=== PATIENT | male | born 1990 | race African-American/Black ===

== ENCOUNTER 2016-05-06 23:30 | Emergency (ER) | payer BC ==
[~2016-05-06] VITALS: Ht 195.6 cm; Wt 83.0 kg
[2016-05-06 23:32] VITALS: BP 133/79; PULSE 70; RESP 20; TEMP 101.9; O2SAT 97
[2016-05-06] MEDS ORDERED: IBUPROFEN 800 MG TAB PO ONE (23:45)
--- NOTE | 2016-05-06 23:47 | PD ---
HPI Chief Complaint: Cold / Flu Symptoms Time Seen by Provider: 23:44 Travel History International Travel<30 days: No Contact w/Intl Traveler<30days: No Traveled to known affect area: No History of Present Illness HPI 25-year-old black male presents with a one-day history of fever, chills, headache, sore throat, cough, congestion, nausea, myalgias, arthralgias and general malaise. He is here going to school at [employer]. He denies any vomiting. No abdominal pain or urinary symptoms. No diarrhea. No vomiting. He has taken NyQuil but no antipyretics. [facility] Past Medical History Narrative Medical Finger dislocation Tetanus Vaccination: < 5 Years Past Surgical History Surgical History: No Previous Surgery Social History Alcohol Use: No Tobacco Use: No Substance Use: No Allergies-Medications (Allergen,Severity, Reaction): Coded Allergies: No Known Allergies (Unverified , 05/06/16) Review of Systems Except as stated in HPI: all other systems reviewed are Neg Physical Exam Narrative GENERAL: Well-developed, well-nourished in no acute distress. Nontoxic appearing. HEAD: Normocephalic, atraumatic. EYES: Pupils equal round and reactive. Extraocular motions intact. No scleral icterus. No injection or drainage. ENT: TMs clear without erythema. The external auditory canals clear. Nose: clear . Posterior pharynx is mildly erythematous and moist. No tonsillar edema or exudate. Uvula midline. Airway patent. NECK: Trachea midline.Supple, nontender, moves head freely. No central bony tenderness or spasm. CARDIOVASCULAR: Regular tachycardic rate and rhythm without murmurs, gallops, or rubs. RESPIRATORY: Clear to auscultation. Breath sounds equal bilaterally. No wheezes , rales, or rhonchi. GASTROINTESTINAL: Abdomen soft, non-tender, nondistended. No hepato-splenomegaly , or palpable masses. No guarding. EXTREMITIES: No clubbing, cyanosis, or edema. No joint tenderness, effusion, or edema noted. BACK: Nontender without deformity or crepitance. No flank tenderness. Data Data Last Documented VS Vital Signs Date Time Temp Pulse Resp B/P Pulse Ox O2 Delivery O2 Flow Rate FiO2 05/06/16 23:32 101.9 70 20 133/79 97 Room Air Orders Ibuprofen (Motrin) (05/06/16 23:45) MDM Medical Decision Making Medical Screen Exam Complete: Yes Emergency Medical Condition: Yes Medical Record Reviewed: Yes Differential Diagnosis MDM: High Differential diagnoses: Pneumonia, bronchitis, URI, influenza, influenza-like illness, strep throat Narrative Course The patient's symptoms are consistent with an influenza-like illness. Patient' s given 800 mg of ibuprofen by mouth and discharged in stable condition. Diagnosis Primary Impression: Influenza-like illness Patient Instructions: General Instructions Departure Forms: School Release, Please excuse from school until (free text option): No school or PE 5 days. Tests/Procedures Additional Instructions: Rest. Increase fluids. Tylenol and Advil. Robitussin-DM. No school or PE 5 days. Followup with your Dr. in one week. Return to the ER for any problems. Disposition: 01 DISCHARGE HOME Condition: Stable Wero Abdi May 06, 2016 23:47
== END 2016-05-07 00:21 | disposition home or self-care (01) ==
LOC: NETRI 23:30
DX: J11.1 Influenza due to unidentified influenza virus with other respiratory manifestations (principal)
CPT/HCPCS: 99283